=== PATIENT | female | born 1990 | race Caucasian/White ===

== ENCOUNTER 2022-01-29 00:46 | Emergency (ER) | payer OTHER ==
[~2022-01-29] VITALS: Ht 162.5 cm; Wt 83.9 kg
[2022-01-29 02:16] LABS: BILIRUBIN Negative (Negative); BLOOD Negative (Negative); CLARITY Cloudy (Clear); COLOR Yellow (Yellow); GLUCOSE Negative (Negative); KETONE 2+ (Negative); LEUKO ESTERASE 1+ (Negative); NITRITE Negative (Negative); SPECIFIC GRAVITY >= 1.030 (1.001-1.030)
[2022-01-29 02:23] LABS: EPITHELIAL CELLS 41-50
[2022-01-29 02:24] LABS: BACTERIA 1+
[2022-01-29 02:47] LABS: HEMATOCRIT 43.7 % (37.0-47.0); MEAN CELL VOLUME 89.4 fl (81.0-99.0); MEAN CORPUSCULAR HGB 29.4 pg (27.0-31.0); MEAN PLATELET VOLUME 10.9 fl (9.6-12.3); PLATELET COUNT AUTOMATED 144 10*3/uL (130-400); RED BLOOD COUNT 4.89 10*6/uL (4.10-5.10); RED CELL DISTRI WIDTH 12.6 % (0-14.5); WHITE BLOOD COUNT 10.8 10*3/uL (4.8-10.8)
[2022-01-29 02:49] LABS: MANUAL DIFF REFLEX YES
[2022-01-29 03:01] LABS: ALKALINE PHOSPHATASE 52 U/L (45-117); BUN 16 mg/dl (7-24); CHLORIDE 110 mmol/L (98-107); CREATININE 0.61 mg/dL (0.55-1.02); LIPASE 363 U/L (73-393); POTASSIUM 3.8 mmol/L (3.5-5.1); SGOT/AST 13 IU/L (3-35); SGPT/ALT 15 U/L (12-78); SODIUM 141 mmol/L (136-145); TOTAL PROTEIN 7.1 gm/dL (6.4-8.2)
[2022-01-29 03:10] LABS: PLATELET SUFFICIENCY LOW (NORMAL); TOTAL CELLS COUNTED 100 #CELLS
[2022-01-29] MEDS ORDERED: DICYCLOMINE HYD20 MG PO (06:39)
== END 2022-01-29 06:37 | disposition home or self-care (01) ==
LOC: ED 00:46
PROVIDERS: Emergency Medicine
DX: K82.8 Other specified diseases of gallbladder (principal); R11.10 Vomiting, unspecified; R19.7 Diarrhea, unspecified